=== PATIENT | female | born 1960 | race Caucasian/White ===

== ENCOUNTER 2019-01-17 23:49 | Emergency (ER) | payer OTHER ==
[2019-01-18] MEDS ORDERED: NA CHLORIDE 0.9% 1,000 ML ONE (00:08)
[2019-01-18] MEDS ORDERED: KETOROLAC 30 MG/ML INJ ONE (00:08)
[2019-01-18] MEDS ORDERED: ONDANSETRON 4 MG/2 ML VIAL ONE (00:09)
[2019-01-18] MEDS ORDERED: FENTANYL CITR 100 MCG/2 ML ONE (00:58)
[2019-01-18] MEDS ORDERED: ACETAMIN/CAFFEINE/BUTALB TAB PO ONE (01:38)
--- NOTE | 2019-01-18 02:06 | ER ---
Nurse's Notes [facility] Name: Shubham Osorio Age: 58 yrs Sex: Female : 1960 Arrival Date: 01/17/2019 Time: 23:52 Bed 13 Private MD: Diagnosis: Migraine, unspecified, intractable, without status migrainosus Presentation: 01/18 00:02 Presenting complaint: Patient states: she worked outside for 3 hours today. at 1830 ak1 began with headache and nausea. pt took Imitrex at 2200, vomited at 2300. Transition of care: patient was not received from another setting of care. Onset of symptoms was January 18, 2019. Risk Assessment: Do you want to hurt yourself or someone else? Patient reports no desire to harm self or others. Initial Sepsis Screen: Does the patient meet any 2 criteria? No. Patient's initial sepsis screen is negative. Does the patient have a suspected source of infection? No. Patient's initial sepsis screen is negative. Care prior to arrival: None. 00:02 Method Of Arrival: Ambulatory ak1 00:02 Acuity: MARGO 3 ak1 Triage Assessment: 00:04 Headache History: The patient has had previous headaches. General: Appears in no ak1 apparent distress. uncomfortable, Behavior is calm, cooperative. 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 Gait is steady, Speech is normal, Facial symmetry appears normal. 00:04 Pain: Also complains of nausea. rr5 Historical: - Allergies: 00:04 Ciprofloxacin; ak1 00:04 Clindamycin; ak1 00:04 Morphine; ak1 00:04 QUINOLONES; ak1 00:04 PENICILLINS; ak1 00:04 Demerol; ak1 - Home Meds: 00:04 folic acid 1 mg Oral tab 1 tab once daily [Active]; Imitrex 50 mg Oral tab 1 tab PRN ak1 [Active]; Tramadol Oral 1 tab every 6 hours for Pain [Active]; Premarin 0.9 mg Oral tab 1 tab once daily [Active]; naproxen 500 mg Oral tab 1 tab 2 times per day [Active]; - PMHx: 00:04 GERD; Migraines; osteopenisis; TMJ; ak1 - PSHx: 00:04 Hysterectomy; Back; Shoulder; Sinus; ak1 - Immunization history:: Adult Immunizations unknown. - Social history:: Smoking status: Patient/guardian denies using tobacco. - Ebola Screening: : No symptoms or risks identified at this time. Screenin:21 Abuse screen: Denies threats or abuse. Denies injuries from another. Nutritional rr5 screening: No deficits noted. Tuberculosis screening: No symptoms or risk factors identified. Fall Risk IV access (20 points). Total Paul Fall Scale indicates No Risk (0-24 pts). Assessment: 00:05 General: Appears in no apparent distress. uncomfortable, Behavior is calm, cooperative, rr5 appropriate for age. 00:05 Pain: Complains of pain in head Pain does not radiate. Pain currently is 10 out of 10 rr5 on a pain scale. Quality of pain is described as aching, Pain began gradually, Is continuous. Neuro: Level of Consciousness is awake, alert, obeys commands, Oriented to person, place, time, situation, Appropriate for age Speech is normal, Facial symmetry appears normal, Reports headache. Cardiovascular: Capillary refill < 3 seconds Patient's skin is warm and dry. Respiratory: Airway is patent Respiratory effort is even, unlabored, Respiratory pattern is regular, symmetrical. GI: Reports nausea, vomiting. : No signs and/or symptoms were reported regarding the genitourinary system. EENT: No signs and/or symptoms were reported regarding the EENT system. Derm: Skin is intact, Skin temperature is warm. Musculoskeletal: Circulation, motion, and sensation intact. Capillary refill < 3 seconds. 01:00 Reassessment: Patient appears in no apparent distress at this time. Patient states rr5 symptoms have not improved. Pain: Pain currently is 10 out of 10 on a pain scale. Quality of pain is described as throbbing. 01:00 Reassessment: ED provider aware with order made and carried out. rr5 01:46 Reassessment: Patient appears in no apparent distress at this time. Patient is alert, rr5 oriented x 3, equal unlabored respirations, skin warm/dry/pink. Patient states feeling better. Patient states symptoms have improved. 01:46 Reassessment: much better now but still im having headache pain score 6/10. ED provider rr5 with order and carried out. 02:20 Reassessment: patient still complaining of headache pain score 6/10. does not ready to rr5 go home as verbalized b y the patient. ED provider aware with order made and carried out. 02:54 Reassessment: Patient appears in no apparent distress at this time. Patient is alert, rr5 oriented x 3, equal unlabored respirations, skin warm/dry/pink. discharge instruction given and explained to patient and loop tender without complaints made. Patient states feeling better. Patient states symptoms have improved. Vital Signs: 00:02 BP 134 / 75; Pulse 70; Resp 18; Temp 97; Pulse Ox 99% on R/A; Weight 63.5 kg (R); ak1 Height 5 ft. 10 in. (177.80 cm) (R); Pain 10/10; 01:00 BP 111 / 62; Pulse 75; Resp 17; Pulse Ox 98% ; Pain 10/10; rr5 01:35 BP 115 / 70; Pulse 70; Resp 16; Pulse Ox 98% ; Pain 6/10; rr5 02:32 BP 112 / 60; Pulse 75; Resp 19; Pulse Ox 98% ; Pain 6/10; rr5 02:53 BP 111 / 67; Pulse 75; Resp 17; Temp 98; Pulse Ox 99% ; Pain 5/10; rr5 00:02 Body Mass Index 20.09 (63.50 kg, 177.80 cm) ak1 Marianne Coma Score: 01:47 Eye Response: spontaneous(4). Verbal Response: oriented(5). Motor Response: obeys tw4 commands(6). Total: 15. ED Course: 01/17 23:52 Patient arrived in ED. cl3 23:58 Baljit Puckett, RN is Primary Nurse. rr5 01/18 00:02 Ramirez Valencia MD is Attending Physician. tw4 00:02 Arm band placed on Patient placed in an exam room, on a stretcher, on pulse oximetry, ak1 Patient notified of wait time Emesis basin given. 00:03 Triage completed. ak1 00:05 Patient has correct armband on for positive identification. Bed in low position. Call rr5 light in reach. Side rails up X2. 00:15 Inserted saline lock: 20 gauge in left antecubital area, using aseptic technique. rr5 01:46 No provider procedures requiring assistance completed. rr5 02:55 IV discontinued, intact, bleeding controlled, No redness/swelling at site. Pressure rr5 dressing applied. Administered Medications: 00:15 Drug: NS 0.9% 1000 ml Route: IV; Rate: 1 bolus; Site: left antecubital; rr5 02:29 Follow up: Response: No adverse reaction; IV Status: Completed infusion; IV Intake: rr5 1000ml 00:16 Drug: Zofran 4 mg Route: IVP; Site: left antecubital; rr5 01:20 Follow up: Response: No adverse reaction rr5 00:18 Drug: TORadol 30 mg Route: IVP; Site: left antecubital; rr5 01:00 Follow up: Response: No adverse reaction; Pain is unchanged, physician notified rr5 01:03 Drug: fentaNYL (PF) 25 mcg {Note: rass 0.} Route: IVP; Site: left antecubital; rr5 02:31 Follow up: Response: No adverse reaction; Pain is decreased; RASS: Alert and Calm (0) rr5 01:44 Drug: Fioricet - Esgic 325 mg-40 mg-50 mg 1 tab-caps Route: PO; rr5 02:31 Follow up: Response: No adverse reaction; Pain is decreased rr5 02:20 Drug: Phenergan 12.5 mg Route: IVP; Site: left antecubital; rr5 02:55 Follow up: Response: No adverse reaction; Pain is decreased rr5 Intake: 02:29 IV: 1000ml; Total: 1000ml. rr5 Outcome: 02:04 Discharge ordered by . tw4 02:55 Discharged to home ambulatory, with family. rr5 02:55 Condition: stable 02:55 Discharge instructions given to patient, family, Instructed on discharge instructions, follow up and referral plans. medication usage, Demonstrated understanding of instructions, follow-up care, medications, Prescriptions given X 2. 02:56 Patient left the ED. rr5 Signatures: Sneha Zayas RN RN ak1 Ramirez Valencia MD MD tw4 Baljit Puckett RN RN rr5 Dhaval Marin cl3 Corrections: (The following items were deleted from the chart) 02:30 02:00 Response: No adverse reaction; Anxiety decreased; RASS: Restless (+1) rr5 rr5 02:31 02:30 Response: No adverse reaction; Anxiety decreased; RASS: Alert and Calm (0) rr5 rr5
--- NOTE | 2019-01-18 02:07 | EDPHYS ---
Physician Documentation [facility] Name: Shubham Osorio Age: 58 yrs Sex: Female : 1960 Arrival Date: 01/17/2019 Time: 23:52 Bed 13 Private MD: ED Physician Ramirez Valencia HPI: 01/18 01:47 This 58 yrs old Female presents to ER via Ambulatory with complaints of tw4 Headache, Vomiting. 01:47 The patient complains of pain to the forehead, right temporal area and right mandaeism. tw4 The patient describes the headache as pounding. Onset: The symptoms/episode began/occurred today. Associated signs and symptoms: The patient has no apparent associated signs or symptoms. Severity of symptoms: At its worst the pain was moderate, in the emergency department the pain has resolved. The symptoms are alleviated by nothing. the symptoms are aggravated by nothing. The patient has not experienced similar symptoms in the past. Historical: - Allergies: 00:04 Ciprofloxacin; ak1 00:04 Clindamycin; ak1 00:04 Morphine; ak1 00:04 QUINOLONES; ak1 00:04 PENICILLINS; ak1 00:04 Demerol; ak1 - Home Meds: 00:04 folic acid 1 mg Oral tab 1 tab once daily [Active]; Imitrex 50 mg Oral tab 1 tab PRN ak1 [Active]; Tramadol Oral 1 tab every 6 hours for Pain [Active]; Premarin 0.9 mg Oral tab 1 tab once daily [Active]; naproxen 500 mg Oral tab 1 tab 2 times per day [Active]; - PMHx: 00:04 GERD; Migraines; osteopenisis; TMJ; ak1 - PSHx: 00:04 Hysterectomy; Back; Shoulder; Sinus; ak1 - Immunization history:: Adult Immunizations unknown. - Social history:: Smoking status: Patient/guardian denies using tobacco. - Ebola Screening: : No symptoms or risks identified at this time. ROS: 01:47 Constitutional: Negative for fever, chills, and weight loss, Eyes: Negative for injury, tw4 pain, redness, and discharge, Cardiovascular: Negative for chest pain, palpitations, and edema, Respiratory: Negative for shortness of breath, cough, wheezing, and pleuritic chest pain, Abdomen/GI: Negative for abdominal pain, nausea, vomiting, diarrhea, and constipation, Back: Negative for injury and pain, MS/Extremity: Negative for injury and deformity, Skin: Negative for injury, rash, and discoloration. 01:47 Neuro: Positive for headache, Negative for altered mental status, dizziness, gait disturbance, hearing loss, loss of consciousness, numbness, seizure activity, speech changes, syncope. Exam: 01:47 Constitutional: This is a well developed, well nourished patient who is awake, alert, tw4 and in no acute distress. Head/Face: Normocephalic, atraumatic. Chest/axilla: Normal chest wall appearance and motion. Nontender with no deformity. No lesions are appreciated. Cardiovascular: Regular rate and rhythm with a normal S1 and S2. No gallops, murmurs, or rubs. Normal PMI, no JVD. No pulse deficits. Respiratory: Lungs have equal breath sounds bilaterally, clear to auscultation and percussion. No rales, rhonchi or wheezes noted. No increased work of breathing, no retractions or nasal flaring. Abdomen/GI: Soft, non-tender, with normal bowel sounds. No distension or tympany. No guarding or rebound. No evidence of tenderness throughout. Back: No spinal tenderness. No costovertebral tenderness. Full range of motion. MS/ Extremity: Pulses equal, no cyanosis. Neurovascular intact. Full, normal range of motion. Neuro: Awake and alert, GCS 15, oriented to person, place, time, and situation. Cranial nerves II-XII grossly intact. Motor strength 5/5 in all extremities. Sensory grossly intact. Cerebellar exam normal. Normal gait. Vital Signs: 00:02 BP 134 / 75; Pulse 70; Resp 18; Temp 97; Pulse Ox 99% on R/A; Weight 63.5 kg (R); ak1 Height 5 ft. 10 in. (177.80 cm) (R); Pain 10/10; 01:00 BP 111 / 62; Pulse 75; Resp 17; Pulse Ox 98% ; Pain 10/10; rr5 01:35 BP 115 / 70; Pulse 70; Resp 16; Pulse Ox 98% ; Pain 6/10; rr5 02:32 BP 112 / 60; Pulse 75; Resp 19; Pulse Ox 98% ; Pain 6/10; rr5 02:53 BP 111 / 67; Pulse 75; Resp 17; Temp 98; Pulse Ox 99% ; Pain 5/10; rr5 00:02 Body Mass Index 20.09 (63.50 kg, 177.80 cm) ak1 Barling Coma Score: 01:47 Eye Response: spontaneous(4). Verbal Response: oriented(5). Motor Response: obeys tw4 commands(6). Total: 15. MDM: 00:02 Patient medically screened. tw4 01:47 Data reviewed: vital signs, nurses notes. Counseling: I had a detailed discussion with tw4 the patient and/or guardian regarding: the historical points, exam findings, and any diagnostic results supporting the discharge/admit diagnosis. Medication response: Zofran partially relieved the patient's nausea. Response to treatment: the patient's symptoms have mildly improved after treatment, and as a result, I will discharge patient. Special discussion: I discussed with the patient/guardian in detail that at this point there is no indication for admission to the hospital. It is understood, however, that if the symptoms persist or worsen the patient needs to return immediately for re-evaluation. Administered Medications: 00:15 Drug: NS 0.9% 1000 ml Route: IV; Rate: 1 bolus; Site: left antecubital; rr5 02:29 Follow up: Response: No adverse reaction; IV Status: Completed infusion; IV Intake: rr5 1000ml 00:16 Drug: Zofran 4 mg Route: IVP; Site: left antecubital; rr5 01:20 Follow up: Response: No adverse reaction rr5 00:18 Drug: TORadol 30 mg Route: IVP; Site: left antecubital; rr5 01:00 Follow up: Response: No adverse reaction; Pain is unchanged, physician notified rr5 01:03 Drug: fentaNYL (PF) 25 mcg {Note: rass 0.} Route: IVP; Site: left antecubital; rr5 02:31 Follow up: Response: No adverse reaction; Pain is decreased; RASS: Alert and Calm (0) rr5 01:44 Drug: Fioricet - Esgic 325 mg-40 mg-50 mg 1 tab-caps Route: PO; rr5 02:31 Follow up: Response: No adverse reaction; Pain is decreased rr5 02:20 Drug: Phenergan 12.5 mg Route: IVP; Site: left antecubital; rr5 02:55 Follow up: Response: No adverse reaction; Pain is decreased rr5 Disposition: 01/18/19 02:04 Discharged to Home. Impression: Migraine, unspecified, intractable, without status migrainosus. - Condition is Stable. - Discharge Instructions: Migraine Headache, [id number]. - Prescriptions for Fiorinal 50- 325-40 mg Oral Capsule - take 1 capsule by ORAL route every 4 hours As needed - not to exceed 6 capsules per day; 20 capsule. Zofran 4 mg Oral Tablet - take 1 tablet by ORAL route every 12 hours As needed; 6 tablet. - Medication Reconciliation Form, Thank You Letter, Antibiotic Education, Prescription Opioid Use form. - Follow up: Private Physician; When: Upon discharge from the Emergency Department; Reason: If symptoms return, Recheck today's complaints, Continuance of care. - Problem is new. - Symptoms have improved. Signatures: Sneha Zayas RN RN ak1 Ramirez Valencia MD MD tw4 Baljit Puckett RN RN rr5 Corrections: (The following items were deleted from the chart) 02:56 02:04 01/18/2019 02:04 Discharged to Home. Impression: Migraine, unspecified, rr5 intractable, without status migrainosus. Condition is Stable. Forms are Medication Reconciliation Form, Thank You Letter, Antibiotic Education, Prescription Opioid Use. Follow up: Private Physician; When: Upon discharge from the Emergency Department; Reason: If symptoms return, Recheck today's complaints, Continuance of care. Problem is new. Symptoms have improved. tw4
[2019-01-18] MEDS ORDERED: PROMETHAZINE 25 MG/ML VIAL ONE (02:19)
[2019-01-18 03:18] VITALS: BP 111/67; TEMP 98; O2SAT 99
== END 2019-01-18 02:56 | disposition home or self-care (01) ==
LOC: ER 23:49
DX: G43.919 Migraine, unspecified, intractable, without status migrainosus (principal); Z88.1 Allergy status to other antibiotic agents; Z88.6 Allergy status to analgesic agent; Z88.0 Allergy status to penicillin
CPT/HCPCS: 96361; 96375; 96374; 99284; J2550; J3010; J7030; J2405

== ENCOUNTER 2021-11-17 18:09 | Emergency (ER) | payer BC ==
[2021-11-17 19:18] LABS: Absolute Lymphocytes (CBC) 2.2 K/uL (0.7-4.9); Hematocrit 31.5 % (36.0-45.0); Lymphocytes % 26.1 % (15.3-44.8); MCV 74.2 fL (80-100); RBC Red Blood Cell Count 4.25 M/uL (3.86-4.86)
[2021-11-17 19:41] LABS: Albumin 3.8 g/dL (3.4-5.0); Bilirubin Total 0.1 mg/dL (0.2-1.0); Potassium 3.7 mmol/L (3.5-5.1); Protein, Total 7.4 g/dL (6.4-8.2)
[2021-11-17] MEDS ORDERED: NA CHLORIDE 0.9% 500 ML ONE (20:20)
[2021-11-17] MEDS ORDERED: KETOROLAC 30 MG/ML INJ ONE (20:20)
--- NOTE | 2021-11-17 20:27 | RAD REPORT ---
EXAM DESCRIPTION: RAD - Chest Single View - 11/17/2021 8:22 pm CLINICAL HISTORY: left flank pain Chest pain. COMPARISON: Stone Protocol dated 11/17/2021 FINDINGS: Portable technique limits examination quality. Subtle increased lung markings in both bases, greater on left may be atelectasis mild infiltrate. Mil d emphysema is present. The heart is normal in size. No displaced fractures.
--- NOTE | 2021-11-17 20:35 | RAD REPORT ---
EXAM DESCRIPTION: CT - Stone Protocol - 11/17/2021 8:23 pm CLINICAL HISTORY: Flank pain. Flank pain, kidney stone suspected COMPARISON: Abdomen W Contrast dated 03/11/2017 TECHNIQUE: Axial images were obtained without oral or IV contrast. Lack of contrast limits solid org an and vascular assessment. The [id number] spans the entirety of the system partially obscuring uppermost abdomen and lung bases. Coronal reformatted images were obtained and reviewed. All CT scans are performed using dose optimization technique as appropriate and may include automated exposure control or mA/KV adjustment according to patient size. FINDINGS: The lower lung chambers are clear. Imaged portions of the liver and spleen show no suspicious findings on non-contrast imaging. The panc reas and adrenal glands are normal. No pathologic lymphadenopathy in the abdomen or pelvis. No urinary tract stones or obstructive uropathy. No bowel obstruction, free air, free fluid or abscess. Nonvisualized appendix.Moderate retained stool throughout the colon. No significant bony abnormality. IMPRESSION: No urinary tract stones or obstructive uropathy.
[2021-11-17 20:58] LABS: Urine Blood Negative (Negative); Urine Glucose Negative (Negative); Urine Protein Negative (Negative); Urine Specific Gravity 1.015 (1.005-1.030)
[2021-11-17 21:18] LABS: Urine Bacteria <20 /HPF (<20); Urine RBC <5 /HPF (None Seen)
[2021-11-17] MEDS ORDERED: LIDOCAINE 4% PATCH ONE (23:47)
[2021-11-18] MEDS ORDERED: CYCLOBENZAPRINE 10 MG TAB ONE (00:09)
[2021-11-18] MEDS ORDERED: FENTANYL CITR 100 MCG/2 ML ONE (00:40)
--- NOTE | 2021-11-18 01:01 | EDPHYS ---
Physician Documentation [facility] Name: Shubham Osorio Age: 61 yrs Sex: Female : 1960 Arrival Date: 11/17/2021 Time: 18:14 Bed 8 Private MD: [facility] Physician Kasi Thao HPI: 11/17 18:45 This 61 yrs old Female presents to ER via Wheelchair with complaints of Flank Pain. cp 18:45 The patient complains of pain in the left flank. The pain radiates to the left mid back.cp 18:45 Onset: The symptoms/episode began/occurred 6 day(s) ago, pain would wax and wane, cp returned today and has persisted. 18:45 Patient denies injury to area, reports pain worse with deep inspiration. cp Historical: - Allergies: 18:28 Ciprofloxacin; hb 18:28 Clindamycin; hb 18:28 Demerol; hb 18:28 Morphine; hb 18:28 PENICILLINS; hb 18:28 QUINOLONES; hb - Home Meds: 20:25 folic acid 1 mg Oral tab 1 tab once daily [Active]; naproxen 500 mg Oral tab 1 tab 2 kd3 times per day [Active]; Premarin 0.9 mg Oral tab 1 tab once daily [Active]; Imitrex 50 mg Oral tab 1 tab PRN [Active]; Tramadol Oral 1 tab every 6 hours for Pain [Active]; - PMHx: 18:28 GERD; Migraines; osteopenisis; TMJ; hb - Immunization history:: Client reports receiving the 2nd dose of the Covid vaccine. - Social history:: Smoking status: Patient denies any tobacco usage or history of. ROS: 18:50 Back: Positive for flank pain, on the left. cp 18:50 Eyes: Negative for injury, pain, redness, and discharge. cp 18:50 Constitutional: Negative for body aches, chills, fever, poor PO intake. 18:50 ENT: Negative for drainage from ear(s), ear pain, sore throat, difficulty swallowing, difficulty handling secretions. 18:50 Cardiovascular: Positive for chest pain, of the left lower lateral chest area. 18:50 Respiratory: Negative for cough, shortness of breath, wheezing. 18:50 Abdomen/GI: Negative for nausea, vomiting, and diarrhea, constipation. 18:50 : Negative for urinary symptoms. 18:50 Skin: Negative for cellulitis, rash. 18:50 Neuro: Negative for altered mental status, headache, syncope, weakness. 18:50 All other systems are negative. Exam: 18:55 Constitutional: The patient appears in no acute distress, alert, awake, cp non-diaphoretic, non-toxic, well developed, well nourished, in obvious pain, uncomfortable. 18:55 Head/Face: Normocephalic, atraumatic. cp 18:55 Eyes: Periorbital structures: appear normal, Conjunctiva: normal, no exudate, no injection, Sclera: no appreciated abnormality, Lids and lashes: appear normal, bilaterally. 18:55 ENT: External ear(s): are unremarkable, Nose: is normal, Mouth: Lips: moist, Oral mucosa: pink and intact, moist, Posterior pharynx: Airway: no evidence of obstruction, patent. 18:55 Neck: ROM/movement: is normal, is supple, without pain, no range of motions limitations, no nuchal rigidity. 18:55 Chest/axilla: Inspection: normal, Palpation: crepitus, is not appreciated, tenderness, that is mild, of the left lower lateral chest wall. 18:55 Cardiovascular: Rate: normal, Rhythm: regular, Edema: is not appreciated, JVD: is not appreciated. 18:55 Respiratory: the patient does not display signs of respiratory distress, Respirations: normal, no use of accessory muscles, no retractions, labored breathing, is not present, Breath sounds: are clear throughout, no decreased breath sounds, no stridor, no wheezing. 18:55 Abdomen/GI: Inspection: abdomen appears normal, Bowel sounds: active, all quadrants, Palpation: soft, in all quadrants, mild abdominal tenderness, in the posterior aspect of left lateral abdomen, anterior aspect of left lateral abdomen and left upper quadrant, rebound tenderness, is not appreciated. 18:55 Back: 18:55 Back: ROM is painful, with all movement, vertebral tenderness, is not appreciated. 18:55 : CVA tenderness, on the left. 18:55 Skin: cellulitis, is not appreciated, no rash present. 18:55 Neuro: Orientation: to person, place \\T\\ time. Mentation: is normal, Motor: moves all fours, strength is normal, Sensation: is normal. Vital Signs: 18:25 BP 126 / 73; Pulse 90; Resp 18; Temp 99.8(TE); Pulse Ox 99% on R/A; Weight 72.57 kg; hb Height 5 ft. 10 in. (177.80 cm); Pain 8/10; 18:45 BP 126 / 72 LA Supine; Pulse 92; Resp 18 S; Temp 99.1(O); Pulse Ox 98% on R/A; Weight ha1 72.57 kg; 21:03 BP 112 / 78; Pulse 89; Resp 18 S; Pulse Ox 99% on R/A; as6 23:32 BP 120 / 61; Pulse 85; Resp 18 S; Pulse Ox 99% on R/A; as6 07 00:36 BP 135 / 72; Pulse 73; Resp 18 S; Pulse Ox 100% on R/A; as6 01:15 BP 138 / 71; Pulse 72; Resp 18; Pulse Ox 100% on R/A; kd3 11/17 18:45 Body Mass Index 22.96 (72.57 kg, 177.80 cm) ha1 MDM: 11/17 18:38 Patient medically screened. [facility] 11/18 01:00 Data reviewed: vital signs, nurses notes, lab test result(s), radiologic studies, CT cp scan, plain films. 01:00 Differential diagnosis: nephrolithiasis, pyelonephritis, UTI, pancreatitis, pneumonia, cp pulmonary embolism. Counseling: I had a detailed discussion with the patient and/or guardian regarding: the historical points, exam findings, and any diagnostic results supporting the discharge/admit diagnosis, lab results, radiology results, the need for outpatient follow up, a family practitioner, to return to the emergency department if symptoms worsen or persist or if there are any questions or concerns that arise at home. Response to treatment: the patient's symptoms have markedly improved after treatment, and as a result, I will discharge patient. 11/17 18:37 Order name: CBC with Diff; Complete Time: 19:46 cp 11/17 19:46 Interpretation: Normal except: HGB 10.1; HCT 31.5; MCV 74.2; MCH 23.9; RDW 17.1. cp 11/17 18:37 Order name: CMP; Complete Time: 19:46 cp 11/17 20:19 Interpretation: Normal except: GFR 76; GLOB 3.6; BILIT 0.1. cp 11/17 18:37 Order name: Lipase; Complete Time: 19:46 cp 11/17 20:20 Interpretation: Reviewed. cp 11/17 18:37 Order name: Urine Microscopic Only; Complete Time: 21:20 cp 11/17 21:20 Interpretation: Reviewed. cp 11/17 19:16 Order name: D-Dimer; Complete Time: 22:54 cp 11/17 20:08 Order name: COVID-19 SARS RT PCR (Document "Date of Onset" if Symptomatic); Complete bb Time: 22:54 11/17 19:16 Order name: XRAY Chest (1 view); Complete Time: 21:17 cp 11/17 20:11 Order name: CT Stone Protocol; Complete Time: 21:17 as6 11/17 20:58 Order name: Urine Dipstick-Ancillary; Complete Time: 21:17 EDMS 11/17 22:56 Order name: CT Chest For PE Angio cp 11/17 18:37 Order name: IV Saline Lock; Complete Time: 19:17 cp 11/17 18:37 Order name: Labs collected and sent; Complete Time: 19:17 cp 11/17 18:37 Order name: Urine Dipstick-Ancillary (obtain specimen); Complete Time: 21:02 cp Administered Medications: 11/17 20:16 Drug: NS 0.9% 500 ml Volume: 500 ml; Route: IV; Rate: 1 bolus; Site: right antecubital; 11/18 01:16 Follow up: Response: No adverse reaction; IV Status: Completed infusion kd3 11/17 20:16 Drug: Ketorolac 15 mg Route: IVP; Site: right antecubital; 11/18 01:16 Follow up: Response: No adverse reaction kd3 00:08 Drug: Lidoderm Patch 5 % (700 mg/patch) 1 patches Route: Topical; Site: affected area; kd3 01:16 Follow up: Response: No adverse reaction kd3 00:08 Drug: Flexeril (cyclobenzaprine) 10 mg Route: PO; kd3 01:16 Follow up: Response: No adverse reaction kd3 00:36 Drug: fentaNYL (PF) 25 mcg Route: IVP; Site: right antecubital; as6 01:16 Follow up: Response: No adverse reaction; Pain is decreased kd3 01:07 Drug: Zithromax (azithromycin) 500 mg Route: PO; kd3 01:16 Follow up: Response: No adverse reaction kd3 01:07 Drug: Rocephin (cefTRIAXone) 1 grams Route: IV; Rate: calculated rate; Site: right kd3 antecubital; 01:07 Follow up: IV Status: Completed infusion kd3 01:16 Follow up: Response: No adverse reaction kd3 Disposition Summary: 11/18/21 01:00 Discharge Ordered Location: Home cp Problem: new cp Symptoms: have improved cp Condition: Stable cp Diagnosis - Other pneumonia, unspecified organism cp Followup: cp - With: Private Physician - When: 2 - 3 days - Reason: Recheck today's complaints Discharge Instructions: - Discharge Summary Sheet cp - Community-Acquired Pneumonia, Adult cp Forms: - Medication Reconciliation Form cp - Thank You Letter cp - Antibiotic Education cp - Prescription Opioid Use cp Prescriptions: - Zithromax Z-Adam 250 mg Oral Tablet - take 1 tablet by ORAL route as directed for 5 days Day 1 - take two (2) tablets cp one time. Day 2, 3, 4 , 5 take one (1) tablet once daily.; 6 tablet; Refills: 0, Product Selection Permitted - Diclofenac Sodium 75 mg Oral tablet,delayed release (DR/EC) - take 1 tablet by ORAL route 2 times per day; 20 tablet; Refills: 0, Product cp Selection Permitted Signatures: Dispatcher [employer] EDPR Kasi Thao MD MD cha Page, Corey, PA PA cp Ginette Savage RN RN hb Slawson, Ashby, RN RN as6 Carmen Fleming RN RN kd3 Corrections: (The following items were deleted from the chart) 11/17 20:19 20:08 Normal except: GFR 76. cp cp
--- NOTE | 2021-11-18 01:01 | ER ---
Nurse's Notes [facility] Name: Shubham Osorio Age: 61 yrs Sex: Female : 1960 Arrival Date: 11/17/2021 Time: 18:14 Bed 8 Private MD: Diagnosis: Other pneumonia, unspecified organism Presentation: 11/17 18:25 Chief complaint: Patient states: Intermittent left flank pain x 6 days, pain became hb severe this afternoon. Denies urinary s/s. Coronavirus screen: At this time, the client does not indicate any symptoms associated with coronavirus-19. Ebola Screen: No symptoms or risks identified at this time. Risk Assessment: Do you want to hurt yourself or someone else? Patient reports no desire to harm self or others. Onset of symptoms was November 12, 2021. 18:25 Method Of Arrival: Wheelchair hb 18:25 Acuity: MARGO 3 hb 20:25 Initial Sepsis Screen: Does the patient meet any 2 criteria? No. Patient's initial kd3 sepsis screen is negative. Does the patient have a suspected source of infection? No. Patient's initial sepsis screen is negative. Historical: - Allergies: 18:28 Ciprofloxacin; hb 18:28 Clindamycin; hb 18:28 Demerol; hb 18:28 Morphine; hb 18:28 PENICILLINS; hb 18:28 QUINOLONES; hb - Home Meds: 20:25 folic acid 1 mg Oral tab 1 tab once daily [Active]; naproxen 500 mg Oral tab 1 tab 2 kd3 times per day [Active]; Premarin 0.9 mg Oral tab 1 tab once daily [Active]; Imitrex 50 mg Oral tab 1 tab PRN [Active]; Tramadol Oral 1 tab every 6 hours for Pain [Active]; - PMHx: 18:28 GERD; Migraines; osteopenisis; TMJ; hb - Immunization history:: Client reports receiving the 2nd dose of the Covid vaccine. - Social history:: Smoking status: Patient denies any tobacco usage or history of. Screenin:25 Abuse screen: Denies threats or abuse. Denies injuries from another. Nutritional kd3 screening: No deficits noted. Tuberculosis screening: No symptoms or risk factors identified. Fall Risk None identified. Assessment: 18:45 General: Appears distressed, Behavior is cooperative, Reports severe pain in the left ha1 upper quadrant of her abdomen. Pain: Complains of pain in left upper quadrant Pain does not radiate. Pain at worst was 10 out of 10 on a pain scale. Quality of pain is described as crushing, sharp, throbbing, Pain began five days ago. has gotten worse over time Is continuous, Alleviated by medications, Aggravated by increased activity, Noted to be grimacing. Neuro: Level of Consciousness is Oriented to person, place, time, situation, Shredding Machine Operator are equal bilaterally Full function Gait is steady, Speech is normal, Pupils are PERRLA. Cardiovascular: Heart tones S1 S2 present Capillary refill < 3 seconds Pulses are all present. Rhythm is regular. Respiratory: Airway is patent Breath sounds are clear bilaterally. GI: Abdomen is non-distended, Last meal at 14:20. Bowel sounds present X 4 quads. Abd is soft and non tender X 4 quads. Reports severe pain on the left upper quadrant. : No signs and/or symptoms were reported regarding the genitourinary system. EENT: No signs and/or symptoms were reported regarding the EENT system. Derm: Skin is intact, Skin is dry, Skin is pink, warm \\T\\ dry. Musculoskeletal: Capillary refill < 3 seconds, Range of motion: intact in all extremities. Vital Signs: 18:25 BP 126 / 73; Pulse 90; Resp 18; Temp 99.8(TE); Pulse Ox 99% on R/A; Weight 72.57 kg; hb Height 5 ft. 10 in. (177.80 cm); Pain 8/10; 18:45 BP 126 / 72 LA Supine; Pulse 92; Resp 18 S; Temp 99.1(O); Pulse Ox 98% on R/A; Weight ha1 72.57 kg; 21:03 BP 112 / 78; Pulse 89; Resp 18 S; Pulse Ox 99% on R/A; as6 23:32 BP 120 / 61; Pulse 85; Resp 18 S; Pulse Ox 99% on R/A; as6 11/18 00:36 BP 135 / 72; Pulse 73; Resp 18 S; Pulse Ox 100% on R/A; as6 01:15 BP 138 / 71; Pulse 72; Resp 18; Pulse Ox 100% on R/A; kd3 11/17 18:45 Body Mass Index 22.96 (72.57 kg, 177.80 cm) 1 ED Course: 11/17 18:14 Patient arrived in ED. jj6 18:28 Triage completed. hb 18:28 Arm band placed on. hb 18:37 Kasi Wooten PA is PHCP. cp 18:37 Kasi Thao MD is Attending Physician. cp 18:45 Bed in low position. Call light in reach. Side rails up X2. Adult w/ patient. ha1 18:48 Inserted saline lock: 20 gauge in right antecubital area, using aseptic technique. ha1 18:48 Initial lab(s) drawn, by me, sent to lab. ha1 19:16 Carmen Fleming, RN is Primary Nurse. kd3 19:17 Lipase Sent. kd3 19:17 CMP Sent. kd3 19:17 CBC with Diff Sent. kd3 20:24 XRAY Chest (1 view) In Process Unspecified. EDMS 20:25 CT Stone Protocol In Process Unspecified. EDMS 20:25 No provider procedures requiring assistance completed. kd3 21:16 COVID-19 SARS RT PCR (Document "Date of Onset" if Symptomatic) Sent. [facility] 11/18 00:01 CT Chest For PE Angio In Process Unspecified. EDMS Administered Medications: 11/17 20:16 Drug: NS 0.9% 500 ml Volume: 500 ml; Route: IV; Rate: 1 bolus; Site: right antecubital; as11/18 01:16 Follow up: Response: No adverse reaction; IV Status: Completed infusion kd3 11/17 20:16 Drug: Ketorolac 15 mg Route: IVP; Site: right antecubital; 11/18 01:16 Follow up: Response: No adverse reaction kd3 00:08 Drug: Lidoderm Patch 5 % (700 mg/patch) 1 patches Route: Topical; Site: affected area; kd3 01:16 Follow up: Response: No adverse reaction kd3 00:08 Drug: Flexeril (cyclobenzaprine) 10 mg Route: PO; kd3 01:16 Follow up: Response: No adverse reaction kd3 00:36 Drug: fentaNYL (PF) 25 mcg Route: IVP; Site: right antecubital; as6 01:16 Follow up: Response: No adverse reaction; Pain is decreased kd3 01:07 Drug: Zithromax (azithromycin) 500 mg Route: PO; kd3 01:16 Follow up: Response: No adverse reaction kd3 01:07 Drug: Rocephin (cefTRIAXone) 1 grams Route: IV; Rate: calculated rate; Site: right kd3 antecubital; 01:07 Follow up: IV Status: Completed infusion kd3 01:16 Follow up: Response: No adverse reaction kd3 Medication: 11/17 20:25 VIS not applicable for this client. kd3 Outcome: 11/18 01:00 Discharge ordered by MD. cha 01:17 Patient left the ED. kd3 Signatures: Dispatcher [employer] EDMS Kasi Wooten PA PA cp Baxter, Heather, JUAN DANIEL RN Tawanna Green Ranjana Gonzales6 Phil Jackson RN RN as6 Carmen Fleming RN RN kd3 Karen Hollis RN RN ha1
[2021-11-18] MEDS ORDERED: CEFTRIAXONE 1000 MG/VIAL ONE (01:08)
[2021-11-18] MEDS ORDERED: AZITHROMYCIN 250 MG TAB ONE (01:08)
[2021-11-18 01:24] VITALS: TEMP 99.1
[2021-11-18 01:31] VITALS: O2SAT 100
[2021-11-18 01:32] VITALS: BP 138/71
--- NOTE | 2021-11-19 08:57 | RAD REPORT ---
EXAM DESCRIPTION: CT - Chest For Pe Angio - 11/18/2021 6:39 am CLINICAL HISTORY: The patient is 61 years old and is Female; left lower chest pain TECHNIQUE: Axial computed tomographic angiography images of the chest with intravenous contrast. S agittal and coronal reformatted images were created and reviewed. This CT exam was performed using one or more of the following dose reduction techniques: automated exposure control, adjustment of t he mA and/or kV according to patient size, and/or use of iterative reconstruction technique. MIP reconstructed images were created and reviewed. COMPARISON: No relevant prior studies available. FINDINGS: PULMONARY ARTERIES: There are no obvious filling defects identified within the pulmonary arteries to suggest pulmonary embolism. AORTA: No acute findings. No thoracic aortic aneurysm. LUNGS: Subtle groundglass opacities within the lung apices along with likely scarring is noted. T he lungs are otherwise clear. PLEURAL SPACE: Unremarkable. No significant effusion. No pneumothorax. HEART: Unremarkable. No cardiomegaly. No significant pericardial effusion. No evidence of R V dysfunction. BONES/JOINTS: No acute fracture. No dislocation. SOFT TISSUES: Unremarkable. LYMPH NODES: Unremarkable. No enlarged lymph nodes. IMPRESSION: 1. Subtle scarring and groundglass opacities within the lung apices. Findings are nons pecific and may be secondary to mild infectious process. 2. No evidence of pulmonary embolism. Electronically signed by: Luz Ardon MD 11/18/2021 12:26 AM CDT Due to temporary technical issues with the PACS/Fluency reporting system, reports are being signed by the in house radiologists without review as a courtesy to insure prompt reporting. The interpreting radiologist is fully responsible for the content of the report.
== END 2021-11-18 01:17 | disposition home or self-care (01) ==
LOC: ER 18:09
DX: J18.8 Other pneumonia, unspecified organism (principal); R10.9 Unspecified abdominal pain; Z20.822 Contact with and (suspected) exposure to COVID-19; Z88.1 Allergy status to other antibiotic agents; Z88.3 Allergy status to other anti-infective agents; Z88.5 Allergy status to narcotic agent; Z88.0 Allergy status to penicillin
CPT/HCPCS: 96361; 85025; 36415; 85379; 83690; 80053; 76377; 71275; 74176; 71045; 96375; 96374; 99284; U0003; Q9967; J3010; J2001; J7040; 81003; 81015

== ENCOUNTER 2023-10-19 13:37 | Emergency (ER) | payer BC ==
[2023-10-19 14:44] LABS: Absolute Eosinophils 0.2 K/uL (0-0.5); Absolute Lymphocytes (CBC) 1.8 K/uL (0.7-4.9); Absolute Monocytes 0.6 K/uL (0.1-1.3); Absolute Neutrophil 5.2 K/uL (1.8-8.0); Basophils % 0.4 % (0-1.3); Eosinophils % 2.8 % (0-4.4); Hemoglobin 12.7 g/dL (12.0-15.0); Lymphocytes % 22.7 % (15.3-44.8); MCH 30.5 pg (27.0-35.0); MCHC 33.4 g/dL (32.0-36.0); MCV 91.3 fL (80-100); MPV 8.3 fL (7.6-11.3); Monocytes % 7.6 % (3.3-12.3); Neutrophils % 66.5 % (41.7-73.7); Platelets 276 thou/uL (152-406); RBC Red Blood Cell Count 4.16 M/uL (3.86-4.86); Red Cell Distribution Width 12.8 % (12.1-15.2)
[2023-10-19 14:53] LABS: PT Prothrombin Time 10.9 SECONDS (9.5-12.5); PTT, Activated Partial Thromb 32.8 SECONDS (24.3-36.9); Protime INR 0.99
[2023-10-19] MEDS ORDERED: FENTANYL CITR 100 MCG/2 ML ONE (15:05)
[2023-10-19 15:17] LABS: Anion Gap 9.8 mEq/L (5.0-15.0); Potassium 3.8 mEq/L (3.5-5.1)
[2023-10-19] MEDS ORDERED: HYDROMORPHONE HCL 0.5 MG/0.5 ML INJ ONE ×2 (15:57→16:30)
--- NOTE | 2023-10-19 17:49 | RAD REPORT ---
EXAM DESCRIPTION: CT - Head C Spine Cap W Con - 10/19/2023 3:45 pm CLINICAL HISTORY: fall, head/chest injury COMPARISON: Chest For Pe Angio dated 11/17/2021 TECHNIQUE: Head and cervical spine CT images were obtained without IV contrast. Chest, abdomen, and pelvis CT images were obtained following intravenous administration of 100 mL Isovue-300. Multiplanar reformats were generated and reviewed. All CT scans are performed using dose optimization technique as appropriate and may include automated exposure control or mA/KV adjustment according to patient size. FINDINGS: CT HEAD: No intracranial hemorrhage, mass effect, or edema. No evidence of acute territorial infarct. No midli ne shift or abnormal fluid collection. The ventricles are normal in caliber and configuration for age . Basal cisterns are patent. Mastoid aircells and paranasal sinuses are clear. No acute skull fractur e. CT CERVICAL SPINE: No acute cervical spine fracture or subluxation. Vertebral body heights are well maintained. Facet juan ints are normal in alignment. No hyperattenuating canal hematoma. Prevertebral and paraspinous soft t issues are unremarkable. CT CHEST: No pneumothorax, pulmonary contusion or pleural fluid collection. No mediastinal hematoma and the aor ta and pulmonary arteries are unremarkable. No chest will mass or abnormal axillary finding. No displ aced rib fracture or other significant bony finding. CT ABDOMEN/ PELVIS: No evidence of traumatic injury to solid abdominal viscera. Gallbladder and biliary tree are unremark able. No bowel injury or significant finding. No free air, free fluid or abnormal fat stranding. No u rinary bladder abnormality. Posterior right rib deformities, with additional new displaced posterior sixth - eighth rib fractures . Minimally displaced anterior right second through fifth rib fractures. IMPRESSION: New displaced posterior right 6th-8th rib fractures. Additional minimally displaced ante rior right second through fifth rib fractures. No other acute traumatic findings.
--- NOTE | 2023-10-19 17:50 | RAD REPORT ---
EXAM DESCRIPTION: RADChest Single View10/19/2023 2:24 pm CLINICAL HISTORY: right rib pain;Chest pain COMPARISON: Chest Single View dated 11/17/2021 TECHNIQUE: Portable AP view of the chest. FINDINGS: The lungs are clear. No pneumothorax or effusion. The cardiomediastinal contours are unre markable. Multiple posterior right rib deformities. Additional subtle posterior right rib fractures, better evaluated on subsequent CT. IMPRESSION: No acute cardiopulmonary process. Subtle posterior displaced right rib fractures, jovon r evaluated on subsequent CT.
--- NOTE | 2023-10-19 18:05 | EDPHYS ---
Physician Documentation [facility] Name: Shubham Osorio Age: 63 yrs Sex: Female : 1960 Arrival Date: 10/19/2023 Time: 13:37 Bed 10 Private MD: ED Physician J Carlos Calderon HPI: 10/18 14:39 This 63 yrs old Female presents to ER via Wheelchair with complaints of Fall Injury, rn Flank Pain, Head Injury Without LOC-Adult. 14:39 Details of fall: The patient fell from an upright position, while walking. Onset: The rn symptoms/episode began/occurred just prior to arrival. Associated injuries: The patient sustained injury to the head, injury to the chest. Severity of symptoms: At their worst the symptoms were moderate, in the emergency department the symptoms are unchanged. The patient has experienced a previous episode. Patient reports falling garage, struck head and right ribs on the floor, concrete. No LOC. Has broken ribs before and this feels the same. No blood thinners.. Historical: - Allergies: 13:51 Ciprofloxacin; aa5 13:51 Clindamycin; aa5 13:51 Demerol; aa5 13:51 Morphine; aa5 13:51 PENICILLINS; aa5 13:51 QUINOLONES; aa5 - PMHx: 13:51 GERD; Migraines; osteopenisis; TMJ; Broken ribs (Unknown); "Punctured lung" (Unknown); aa5 - Immunization history:: Adult Immunizations unknown. - Infectious Disease History:: Denies. - Social history:: Smoking status: Patient denies any tobacco usage or history of. - Family history:: not pertinent. - Hospitalizations: : No recent hospitalization is reported. ROS: 14:39 Constitutional: Negative for fever, chills, and weight loss, Neck: Negative for injury, rn pain, and swelling, Cardiovascular: Positive for rib injury to the right chest. Respiratory: Negative for shortness of breath, cough, wheezing Abdomen/GI: Negative for abdominal pain, nausea, vomiting, diarrhea, and constipation, Back: Negative for injury and pain, MS/Extremity: Negative for injury and deformity, Neuro: Positive for headache and head injury. Exam: 14:39 Constitutional: This is a well developed, well nourished patient who is awake, alert, rn appears uncomfortable Head/Face: Normocephalic, atraumatic. Eyes: Pupils equal round and reactive to light Neck: No midline cervical tenderness Chest/axilla: Tender right anterior lateral ribs without crepitus Cardiovascular: Regular rate and rhythm. No pulse deficits. Respiratory: Splinted breathing on the right side Abdomen/GI: Soft, nontender Back: No spinal tenderness. MS/ Extremity: Pulses equal, no cyanosis. Neurovascular intact. Full, normal range of motion. Equal circumference. Neuro: Awake and alert, GCS 15, oriented to person, place, time, and situation. Vital Signs: 13:51 BP 118 / 72; Pulse 72; Resp 14 S; Temp 97.5(TE); Pulse Ox 100% on R/A; Weight 72.12 kg aa5 (R); Height 5 ft. 10 in. (R); 16:36 BP 143 / 74; Pulse 79; Resp 18; Pulse Ox 98% ; as6 18:22 BP 125 / 81; Pulse 81; Resp 18 S; Pulse Ox 100% on R/A; as6 13:51 Body Mass Index 22.81 (72.12 kg, 177.8 cm) aa5 MDM: 13:40 Patient medically screened. rn 18:03 Differential diagnosis: closed head injury, contusion, fracture, multiple trauma, rn sprain, strain. Data reviewed: vital signs, nurses notes, lab test result(s), radiologic studies, CT scan, and as a result, I will discharge patient. Counseling: I had a detailed discussion with the patient and/or guardian regarding the historical points, exam findings, and any diagnostic results supporting the discharge/admit diagnosis, lab results, radiology results. Response to treatment: the patient's symptoms have markedly improved after treatment. ED course: Patient with multiple rib fractures on the right side, no pneumothorax or hemothorax identified. Offered patient admission for pain control and patient declines. Patient will go home with pain medication and given return precautions. Also spoke to her about what not to do with broken ribs to minimize her chance of complication such as pneumonia. I have personally reviewed all of the results, including but not limited to imaging deemed necessary to safely discharge this patient at this time. All results given to and printed out for patient. I personally went over all the results with the patient and answered all questions. Patient will follow-up with PCP and or specialist as discussed. Return precautions given and understood.. 10/18 13:55 Order name: Basic Metabolic Panel; Complete Time: 15:27 rn 10/18 13:55 Order name: CBC with Diff; Complete Time: 15:27 rn 10/18 13:55 Order name: Protime (+inr); Complete Time: 15:27 rn 10/18 13:55 Order name: Ptt, Activated; Complete Time: 15:27 rn 10/18 13:55 Order name: CT Traumagram (Head C Spine CAP W Con); Complete Time: 17:51 rn 10/18 13:55 Order name: XRAY Chest (1 view); Complete Time: 17:51 rn 10/18 13:55 Order name: Labs collected and sent; Complete Time: 14:37 rn Administered Medications: 15:07 Drug: fentaNYL (PF) IVP 50 mcg IVP once Route: IVP; Site: left forearm; as6 18:21 Follow up: Response: No adverse reaction as6 16:03 Drug: HYDROmorphone IVP 0.5 mg IVP once Route: IVP; Site: left forearm; as6 18:22 Follow up: Response: No adverse reaction as6 16:37 Drug: HYDROmorphone IVP 0.5 mg IVP once Route: IVP; Site: left forearm; as6 18:22 Follow up: Response: No adverse reaction as6 18:21 Drug: [place] PO 10 mg-325 mg 1 tabs PO once Route: PO; as6 18:22 Follow up: Response: No adverse reaction as6 18:21 Drug: Gabapentin PO 300 mg PO once Route: PO; as6 18:22 Follow up: Response: No adverse reaction as6 Disposition Summary: 10/19/23 18:04 Discharge Ordered Notes: Location: Home rn Problem: new rn Symptoms: have improved rn Condition: Stable rn Diagnosis - Multiple fractures of ribs, right side rn Followup: rn - With: Private Physician - When: As needed - Reason: Recheck today's complaints, Re-evaluation by your physician Discharge Instructions: - Discharge Summary Sheet rn - Rib Fracture rn Forms: - Medication Reconciliation Form rn - Antibiotic technical support intern - Prescription Opioid Use rn - Patient Portal Instructions rn - Leadership Thank You Letter rn Prescriptions: - gabapentin 300 mg Oral capsule - take 1 capsule ORAL route every 12 hours; 14 capsule; Refills: 0, Product rn Selection Permitted - Tramadol 50 mg Oral tablet - take 1 tablet ORAL route every 8 hours As needed as needed; 20 tablet; Refills: rn 0, Product Selection Permitted Signatures: Dispatcher [employer] J Carlos Cano MD MD rn Elba Brown, RN RN aa5 Phil Jackson, RN RN as6
--- NOTE | 2023-10-19 18:05 | ER ---
Nurse's Notes [facility] Name: Shubham Osorio Age: 63 yrs Sex: Female : 1960 Arrival Date: 10/19/2023 Time: 13:37 Bed 10 Private MD: Diagnosis: Multiple fractures of ribs, right side Presentation: 10/18 13:51 Chief complaint: Patient states: tripped and fell in the garage today. Pt c/o pain to aa5 right side ribs. Coronavirus screen: At this time, the client does not indicate any symptoms associated with coronavirus-19. Ebola Screen: Patient denies travel to an Ebola-affected area in the 21 days before illness onset. Initial Sepsis Screen: Does the patient meet any 2 criteria? No. Patient's initial sepsis screen is negative. Does the patient have a suspected source of infection? No. Patient's initial sepsis screen is negative. Risk Assessment: Do you want to hurt yourself or someone else? Patient reports no desire to harm self or others. Onset of symptoms was October 19, 2023. 13:51 Acuity: MARGO 3 aa5 13:51 Method Of Arrival: Wheelchair aa5 Historical: - Allergies: 13:51 Ciprofloxacin; aa5 13:51 Clindamycin; aa5 13:51 Demerol; aa5 13:51 Morphine; aa5 13:51 PENICILLINS; aa5 13:51 QUINOLONES; aa5 - PMHx: 13:51 GERD; Migraines; osteopenisis; TMJ; Broken ribs (Unknown); "Punctured lung" (Unknown); aa5 - Immunization history:: Adult Immunizations unknown. - Infectious Disease History:: Denies. - Social history:: Smoking status: Patient denies any tobacco usage or history of. - Family history:: not pertinent. - Hospitalizations: : No recent hospitalization is reported. Screenin:09 [facility] ED Fall Risk Assessment (Adult) History of falling in the last 3 months, as6 including since admission Yes- single mechanical fall (1 pt) Confusion or Disorientation No (0 pts) Intoxicated or Sedated No (0 pts) Impaired Gait No (0 pts) Mobility Assist Device Used No (0 pt) Altered Elimination No (0 pt) Score/Fall Risk Level 0 - 2 = Low Risk Oriented to surroundings, Maintained a safe environment, Educated pt \\T\\ family on fall prevention, incl call for assistance when getting out of bed, Assessed \\T\\ reinforced patient's understanding of fall precautions. Abuse screen: Denies threats or abuse. Denies injuries from another. Nutritional screening: No deficits noted. Tuberculosis screening: No symptoms or risk factors identified. Assessment: 15:08 General: Appears uncomfortable, Behavior is cooperative. Pain: Complains of pain in as6 right lateral posterior chest and right lateral anterior chest. Respiratory: Airway is patent Trachea midline Respiratory effort is even, unlabored, Respiratory pattern is regular, symmetrical. 16:03 Reassessment: pt restless, still c/o pain to ribs. as6 16:36 General: Appears uncomfortable, provider notified of pt pain. as6 18:24 Reassessment: Patient states symptoms have improved. as6 Vital Signs: 13:51 BP 118 / 72; Pulse 72; Resp 14 S; Temp 97.5(TE); Pulse Ox 100% on R/A; Weight 72.12 kg aa5 (R); Height 5 ft. 10 in. (R); 16:36 BP 143 / 74; Pulse 79; Resp 18; Pulse Ox 98% ; as6 18:22 BP 125 / 81; Pulse 81; Resp 18 S; Pulse Ox 100% on R/A; as6 13:51 Body Mass Index 22.81 (72.12 kg, 177.8 cm) aa5 ED Course: 13:40 Patient arrived in ED. im 13:40 J Carlos Calderon MD is Attending Physician. rn 13:51 Triage completed. aa5 13:51 Arm band placed on. aa5 14:26 XRAY Chest (1 view) In Process Unspecified. EDMS 14:37 Protime (+inr) Sent. bc6 14:37 Ptt, Activated Sent. bc6 14:37 Basic Metabolic Panel Sent. bc6 14:37 CBC with Diff Sent. bc6 14:37 Initial lab(s) drawn, by me, sent to lab. Inserted saline lock: 24 gauge in left bc6 forearm, using aseptic technique. Blood collected. 14:56 Patient placed in an exam room, on a stretcher. ll1 14:58 Phil Jackson, JUAN DANIEL is Primary Nurse. as6 15:09 Bed in low position. Call light in reach. Side rails up X 1. Warm blanket given. as6 15:47 CT Traumagram (Head C Spine CAP W Con) In Process Unspecified. EDMS 18:22 No provider procedures requiring assistance completed. IV discontinued, intact, as6 bleeding controlled, No redness/swelling at site. Pressure dressing applied. 18:24 Provided Education on: IS use. as6 18:24 Incentive spirometer education. as6 Administered Medications: 15:07 Drug: fentaNYL (PF) IVP 50 mcg IVP once Route: IVP; Site: left forearm; as6 18:21 Follow up: Response: No adverse reaction as6 16:03 Drug: HYDROmorphone IVP 0.5 mg IVP once Route: IVP; Site: left forearm; as6 18:22 Follow up: Response: No adverse reaction as6 16:37 Drug: HYDROmorphone IVP 0.5 mg IVP once Route: IVP; Site: left forearm; as6 18:22 Follow up: Response: No adverse reaction as6 18:21 Drug: [place] PO 10 mg-325 mg 1 tabs PO once Route: PO; as6 18:22 Follow up: Response: No adverse reaction as6 18:21 Drug: Gabapentin PO 300 mg PO once Route: PO; as6 18:22 Follow up: Response: No adverse reaction as6 Medication: 15:09 VIS not applicable for this client. as6 Outcome: 18:04 Discharge ordered by . rn 18:23 Discharged to home via wheelchair, with significant other, as6 18:23 Condition: stable 18:23 Discharge instructions given to patient, significant other, Instructed on discharge instructions, follow up and referral plans. medication usage, Demonstrated understanding of instructions, follow-up care, medications, Prescriptions given X 2, 18:25 Patient left the ED. as6 Signatures: Dispatcher [employer] EDMS J Carlos Calderon MD MD rn Calderon, Audri, RN RN aa5 Alexsander Marin RN RN ll1 Phil Jackson RN RN as6 Elvira Post6 Nhung Tobin Corrections: (The following items were deleted from the chart) 13:54 13:51 BP 118 / 72; Pulse 72bpm; Resp 14bpm; Spontaneous; Pulse Ox 100% RA; Temp 97.5F aa5 Temporal; aa5
[2023-10-19] MEDS ORDERED: GABAPENTIN 300 MG CAP ONE (18:06)
[2023-10-19] MEDS ORDERED: HYDROCODONE/APAP 10/325 TAB ONE (18:07)
[2023-10-19 19:06] VITALS: BP 125/81; TEMP 97.5; O2SAT 100
== END 2023-10-19 18:25 | disposition home or self-care (01) ==
LOC: ER 13:37
DX: S22.41XA Multiple fractures of ribs, right side, initial encounter for closed fracture (principal); W18.30XA Fall on same level, unspecified, initial encounter
CPT/HCPCS: 85025; 80048; 36415; 85610; 85730; 70450; 72125; 71260; 74177; 71045; 96375; 96374; 99284; Q9967; J3010; J1170 ×2